=== PATIENT | female | born 1990 | race Caucasian/White ===

== ENCOUNTER → 2020-08-27 00:31 | Outpatient (CLI) | payer OTHER, SELFPAY ==
[2020-08-27 19:13] LABS: SARS-CoV-2 RNA PCR Negative
== END ==
PROVIDERS: PCP Family Medicine; Visit Provider Obstetrics & Gynecology
DX: Z01.812 Encounter for preprocedural laboratory examination (principal); Z20.822 Contact with and (suspected) exposure to COVID-19
CPT/HCPCS: C9803; U0003; U0005

== ENCOUNTER → 2020-12-05 01:58 | Outpatient (CLI) | payer OTHER, SELFPAY ==
[2020-12-05 18:16] LABS: SARS-CoV-2 RNA PCR Negative
== END ==
PROVIDERS: Visit Provider Obstetrics & Gynecology
DX: Z01.812 Encounter for preprocedural laboratory examination (principal); Z20.822 Contact with and (suspected) exposure to COVID-19
CPT/HCPCS: C9803; U0003; U0005

== ENCOUNTER 2020-12-07 00:41 | Day surgery (SDC) | payer OTHER, SELFPAY ==
[2020-08-23 08:35] VITALS: BMI 41.8
--- NOTE | 2020-10-25 07:17 | WPDHPUPDATE1 ---
History and Physical Update Update Date/Time: 10/25/20 07:17 History and Physical has been reviewed, including an updated exam of the patient. There are NO changes in the patient's condition. Risks, benefits, and alternatives have been discussed and questions answered. Patient agrees to proceed with procedure.
[2020-11-30 09:42] VITALS: BMI 46.4
[2020-12-07] VITALS (16 sets, daily range): BP systolic 105–141; BP diastolic 58–96; PULSE 94–120; RESP 12–22; TEMP 37.2–37.3; O2SAT 95–100
--- NOTE | 2020-12-07 08:12 | WPDANESEPPF ---
Anes - Initial Pre Proc Eval Procedure: Operation Date: 12/07/20 09:30 Proposed Procedures p Laparoscopic Left Ovarian Cystectomy - Sven Almodovar MD Date/Time: 12/07/20 08:12 Surgeon: Sven Almodovar MD Pre Op Diagnosis: left ovarian cyst Patient Data Age: 30 Gender: F Height: 1.63 m Weight: 122.72 kg Allergies Allergy/AdvReac Type Severity Reaction Status Date / Time Penicillins Allergy Unknown HIVES Unverified 11/30/20 09:34 Home Medications Medication Instructions Recorded Confirmed Type lamotrigine [Lamictal] 100 mg PO HS 08/23/20 11/30/20 History quetiapine [Seroquel] 100 mg PO HS 08/23/20 11/30/20 History Patient hx anesthesia problems: none Family hx anesthesia problems: none [facility] Past Medical History Medical History (Updated 12/07/20 @ 08:14 by Shaan Stubbs MD) Morbid obesity Ovarian cyst Surgical History Surgical History (Updated 12/07/20 @ 08:17 by Shaan Stubbs MD) Hx of tonsillectomy Social History Social History Smoking status: Never smoker Second hand tobacco smoke exposure: No Alcohol intake: never Substance use: never Substance use type: does not use Living arrangements: with family Additional living arrangements comments: RECENTLY MOVED OUT OF [facility] [address] AND NOW LIVING WITH HER MOM Spiritual care concerns: No Anes - Eval Final PreProcedure Day of Procedure 12/07/20 08:12 Patient weight: morbidly obese Heart: regular rate and rhythm Lungs: clear to auscultation Airway: Mallampati scale class II Neurological: alert and oriented Last oral intake: >/= 8 hours ASA classification: III Emergent: no Anesthetic plan: proceed Anesthesia type and monitoring: general ETT and standard monitoring Informed Consent: The patient's anesthetic plan and its attendant risks and benefits were discussed with the patient/family/POA. Questions were solicited and answers provided to the satisfaction of the patient/family/POA.
--- NOTE | 2020-12-07 08:20 | WPDHPUPDATE1 ---
History and Physical Update Update Date/Time: 12/07/20 08:20 History and Physical has been reviewed, including an updated exam of the patient. There are NO changes in the patient's condition. Risks, benefits, and alternatives have been discussed and questions answered. Patient agrees to proceed with procedure.
--- NOTE | 2020-12-07 08:20 | PM.IMHP ---
H&P: HPI History of Present Illness Date/Time: 12/07/20 08:20This patient is a 30-year-old female with a large ovarian cyst. She also has pelvic pain . We have agreed to perform laparoscopic ovarian cystectomy on the left ovary. The patient understands the procedure. She understands the risks associated with this that include injury. The injuries can result in hospitalization, more surgery, and severe illness. She understands this. She understands risk of hemorrhage and infection. Chief Complaint: Pelvic pain Review of Systems Constitutional: Constitutional: Reports no additional constitutional complaints, Denies fatigue, Denies headache(s), Denies lethargy and Denies weakness Eyes: Eyes: Reports no additional eye complaints, Denies blurry vision and Denies photophobia ENT: Reports as per HPI, Denies headache(s) and Denies neck pain Cardiovascular: Cardiovascular: Denies chest pain, Denies diaphoresis, Denies leg edema, Denies palpitations and Denies dyspnea Respiratory: Respiratory: Denies hemoptysis, Denies dyspnea and Denies wheezing Gastrointestinal: Gastrointestinal: Denies abdominal pain, Denies melena, Denies bloating, Denies hematochezia, Denies nausea and Denies vomiting Genitourinary: Genitourinary: Reports no additional female genitourinary complaints Musculoskeletal: Musculoskeletal: Denies joint swelling, Denies neck pain, Denies numbness and Denies stiffness Neurologic: Denies Abnormal speech present, Denies confusion, Denies headache(s), Denies numbness and Denies weakness Psychiatric: Psychiatric: Denies anxiety, Denies confusion, Denies depression, Denies homicidal ideation and Denies suicidal ideation Endocrine: Endocrine: Denies fatigue and Denies palpitations Allergic/Immunologic: Allergic/Immunologic: Denies wheezing [facility] Past Medical History Medical History (Updated 12/07/20 @ 08:22 by Sven Almodovar MD) Morbid obesity Ovarian cyst Surgical History Surgical History (Updated 12/07/20 @ 08:17 by Shaan Stubbs MD) Hx of tonsillectomy Social History Social History Smoking status: Never smoker Second hand tobacco smoke exposure: No Alcohol intake: never Substance use: never Substance use type: does not use Living arrangements: with family Additional living arrangements comments: RECENTLY MOVED OUT OF [facility] [address] AND NOW LIVING WITH HER MOM Spiritual care concerns: No Meds Home Medications and Allergies Home Medications Medication Instructions Recorded Confirmed Type lamotrigine [Lamictal] 100 mg PO HS 08/23/20 11/30/20 History quetiapine [Seroquel] 100 mg PO HS 08/23/20 11/30/20 History Allergies Allergy/AdvReac Type Severity Reaction Status Date / Time Penicillins Allergy Unknown HIVES Unverified 11/30/20 09:34 Exam Const: General: healthy appearing, comfortable and no acute distress; No confusion Orientation/consciousness: No confusion Eyes: Direct Ophthalmoscopy: No photophobia Resp: Auscultation: clear to auscultation bilaterally, no rales, no rhonchi and no wheezes Cardio: Rate: regular rate Heart sounds: no click, no murmurs and no rubs GI: Inspection: non-distended GI Palp: No abdominal tenderness Auscultation: normal bowel sounds Neuro: General: No confusion Speech: No Abnormal speech present Extrem: General: normal to inspection, no pedal edema and no calf tenderness Assessment and Plan Assessment and plan (1) Ovarian cyst: Code(s): N83.209 - Unspecified ovarian cyst, unspecified side Status: Acute Assessment and Plan: this patient is a 30-year-old female with a left ovarian cyst. It is painful. We have agreed to perform laparoscopic left ovarian cystectomy. She understands the risks, benefits, and alternatives. She has completed the informed consent
--- NOTE | 2020-12-07 10:22 | W.PM.PROC2 ---
Procedure Note - Detailed Date of Procedure 12/07/20 Pre-op Diagnosis left ovarian cyst Post-op Diagnosis same ( adnexal torsion) Procedure Performed left salpingo-oophorectomy with removal of large cystic mass. Surgeon Sven Almodovar MD Anesthesia general Indications 11 cm left ovarian cyst, pelvic pain Findings large left ovarian cyst, adnexal torsion on the left Description of Procedure The patient was taken to the operating room. She was prepped and draped in the dorsal lithotomy position after induction general anesthesia. A 5 mm incision was made with a scalpel on the abdominal skin in the left upper quadrant of the abdomen. A 5 mm trocar was inserted into the intra-abdominal cavity under direct visualization the scope. In the same fashion a 5 mm left lower quadrant trocar was inserted and a 5 mm infraumbilical trocar was inserted. after examination of the pelvis a large 15 mm trocar was inserted into the abdominal cavity in the left lower quadrant. The incision of the left lower quadrant site was expanded there before insertion of the trocar with the scalpel. The large left tube and ovary were cauterized transected the area the torsion. The cystic ovary was then placed in a large endobag was placed through the large trocar. The opening of the bag was brought up through the abdominal incision the left Lower quadrant. The skin incision was opened further. The fascial incision was extended with the scalpel. The opening of the bag could just pass through the fascia. The surface of the cyst was punctured and the fluid within the cyst was evacuated using suction. When it was reduced enough the entire bag and cyst with ovary and tube could be removed. The size of the cystic mass concerned me for borderline tumor. The trocar was inserted with towel clips on the skin around the trocar holding the pneumoperitoneum. irrigation fluid was infused into the pelvis and washings were obtained with a suction cannula syringe. The trocars removed in pneumoperitoneum was reduced. The fascia was closed 0 Vicryl running lock fashion. Subcuticular 3 0 Vicryl were placed. The skin was closed subcuticular 4 0 Monocryl. The skin incisions were covered Dermabond. She was taken recovery room in stable condition. Sponge lap and needle counts were correct x2. Estimated Blood Loss 25 Drains No Packing No Pathology yes Complications No immediate complications Condition stable Disposition same day
[2020-12-07] MEDS: LACTATED RINGERS 1,000 ML 30 ML IV CONT ×2 (10:30)
[2020-12-07] MEDS: ONDANSETRON INJ 4 MG/2 ML VIAL IV PUSH (10:57)
[2020-12-07] MEDS: fentaNYL CITRATE INJ (*CRX) 100 MCG/2 ML VIAL 25 MCG IV PUSH ×4 (11:25→12:15)
[2020-12-07] MEDS: diphenhydrAMINE HCl INJ 50 MG/ML VIAL 25 MG IV PUSH (11:55)
[2020-12-07] MEDS: SCOPOLAMINE 1.5 MG PATCH TRANSDERM (11:55)
== END 2020-12-07 14:15 | disposition home or self-care (01) ==
PROVIDERS: Visit Provider Obstetrics & Gynecology
PROC: (CPT 49320; principal; 2020-12-07 09:30)
DX: D27.1 Benign neoplasm of left ovary (principal); E66.01 Morbid (severe) obesity due to excess calories; Z68.37 Body mass index [BMI] 37.0-37.9, adult
CPT/HCPCS: 58661; 88108; 88305; A9270; J0330; J1100; J1200; J2250; J2405; J2704; J3010; J7030; J7120

== ENCOUNTER 2021-12-28 11:28 | Outpatient (CLI) | payer OTHER, SELFPAY ==
[2021-12-28 12:23] LABS: Influenza Control Valid (Valid)
[2021-12-28 12:34] LABS: SARS-CoV-2 Ag Negative (Negative)
== END 2021-12-28 11:29 | disposition home or self-care (01) ==
LOC: CHSLAB 11:30
PROVIDERS: PCP Family Medicine; Visit Provider Family Medicine
DX: J06.9 Acute upper respiratory infection, unspecified (principal); Z20.822 Contact with and (suspected) exposure to COVID-19
CPT/HCPCS: 87081; 87426; 87804; 87880; C9803

== ENCOUNTER 2022-10-02 19:43 | Emergency (ER) | payer OTHER, SELFPAY ==
--- NOTE | ~2022-10-02 | XR_ITS ---
EXAM: XR hand LT min 3V DATE: 10/02/2022 20:18 HISTORY: MEDIAL LEFT HAND PAIN S/P FALL. . COMPARISON: None available. FINDINGS: Normal mineralization. No fracture or dislocation. No lytic or blastic lesion. Joint space s are maintained. No erosion or periosteal change. Soft tissues within normal limits. IMPRESSION: No acute osseous finding in the left hand. Reviewed, dictated and finalized at location K.
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
[2022-10-02 19:50] VITALS: BP 120/79; PULSE 65; RESP 20; TEMP 36.4; O2SAT 97
== END 2022-10-02 20:35 | disposition home or self-care (01) ==
LOC: CHSED 20:20
PROVIDERS: Emergency Provider Emergency Medicine; PCP Family Medicine
DX: S60.222A Contusion of left hand, initial encounter (principal); W50.0XXA Accidental hit or strike by another person, initial encounter; Y92.009 Unspecified place in unspecified non-institutional (private) residence as the place of occurrence of the external cause
CPT/HCPCS: 73130; 99283

== ENCOUNTER 2023-03-07 20:15 | Emergency (ER) | payer OTHER, SELFPAY ==
--- NOTE | ~2023-03-07 | CT_ITS ---
EXAMINATION: CT abdomen pelvis w con INDICATION: Abdominal pain TECHNIQUE: Computed tomographic images of the abdomen and pelvis were obtained after the administrati on of 100 cc of Omnipaque 350 intravenous contrast. The dose-length product (DLP) was 809.21 mGy-cm. Automated exposure control and iterative reconstruction technique were employed. COMPARISON: None available FINDINGS: Minimal dependent atelectasis is present in the lung bases. The heart size is normal. The l iver, spleen, pancreas, gallbladder, and adrenal glands are normal. The left kidney is unremarkable. There is a 6 mm cyst of the right kidney. No pathologically enlarged abdominal or pelvic lymph nodes are identified. There fecal impaction of the sigmoid colon and rectum. There is wall thickening of th e rectum with perirectal fat stranding. There are no dilated loops of bowel. No free intraperitoneal gas is identified. There is a left lateral lower abdominal wall hernia containing fat, possibly site of prior colostomy. IMPRESSION: 1. Fecal impaction of the sigmoid colon and rectum with wall thickening of the rectum and perirectal fat stranding, consistent with stercoral colitis. Reviewed, dictated and finalized at location F.
[2023-03-07 20:20] VITALS: BP 111/76; RESP 20; TEMP 36.6; O2SAT 95
--- NOTE | 2023-03-07 20:36 | ECG_ITS ---
Measurements Intervals [place] Rate: 87 P: 38 FL: 123 QRS: 12 QRSD: 86 T: 19 QT: 350 QTc: 423 Interpretive Statements SINUS RHYTHM BORDERLINE T WAVE ABNORMALITY- ANTERIOR LEADS BORDERLINE ECG NO PREVIOUS ECG AVAILABLE FOR COMPARISON Electronically Signed On 03-08-2023 6:39:22 CDT by Vivek Powell D.O.
[2023-03-07] MEDS: SODIUM CHLORIDE 0.9% IV 1,000 ML 999 ML IV CONT (20:50)
[2023-03-07 20:58] LABS: Basophils Absolute Auto 0.06 K/mm3 (0.00-0.10); Basophils Percent Auto 0.6 % (0.0-1.0); Eosinophils Absolute Auto 0.09 K/mm3 (0.02-0.50); Eosinophils Percent Auto 0.8 % (1.0-6.0); Hematocrit 35.7 % (35.0-49.0); Hemoglobin 12.1 g/dL (12.0-15.0); Immature Granulocyte Absolute 0.07 K/mm3 (0.00-0.00); Immature Granulocyte Percent A 0.6 % (0.0-0.0); Lymphocytes Absolute Auto 2.76 K/mm3 (1.10-4.50); Lymphocytes Percent Auto 25.3 % (18.0-42.0); Mean Corpuscular HGB Conc 33.9 g/dL (32.0-36.0); Mean Corpuscular Volume 85.6 fL (78.0-102.0); Mean Platelet Volume 9.4 fl (9.2-11.8); Monocytes Absolute Auto 0.82 K/mm3 (0.10-0.90); Monocytes Percent Auto 7.5 % (2.0-11.0); Neutrophils Absolute Auto 7.1 K/mm3 (1.7-7.2); Neutrophils Percent Auto 65.2 % (50.0-70.0); Platelet Count Result 417 K/mm3 (150-420); Red Blood Count 4.17 M/mm3 (4.20-5.40); Red Cell Distribution Width 12.5 % (11.6-14.4); White Blood Count 10.9 K/mm3 (4.8-10.8)
[2023-03-07 21:00] VITALS: BP 101/65; PULSE 85; RESP 18; O2SAT 97
[2023-03-07] MEDS: DIPHENOXYLATE/ATROPINE (*CRX) 2.5 MG TABLET 2 TABLET PO (21:03)
[2023-03-07 21:08] LABS: SPREG INTERNAL CONTROL Positive; Serum Qual hCG Negative
[2023-03-07 21:14] LABS: Alanine Aminotransferase 40 U/L (14-59); Albumin Level 3.2 g/dL (3.4-5.0); Alkaline Phosphatase 62 U/L (46-116); Anion Gap 12 mmol/L (8-16); Aspartate Amino Transferase 18 U/L (15-37); Bilirubin,Total 0.3 mg/dL (0.00-1.00); Blood Urea Nitrogen 7 mg/dL (7-18); Calcium 9.4 mg/dL (8.5-10.1); Carbon Dioxide 22 mmol/L (21-32); Chloride 104 mmol/L (98-108); Estimated CRCL calculation 108 ml/min; Estimated Glomerular Filt Rate > 60; Glucose 104 mg/dL (70-99); Lipase 28 U/L (16-77); Osmolality Calculated 284 mOsm/kg (285-295); Potassium 3.9 mmol/L (3.5-5.1); Sodium 138 mmol/L (136-145); Total Protein 7.3 g/dL (6.4-8.2)
--- NOTE | 2023-03-07 21:15 | PC.NURSE ---
Pt up to [facility] c assist several times and having bouts of diarrhea. Pt unable to clean herself properly and assisted c cleaning using wet wipes and cleansing foam. Pt back to bed per self. VSS.
[2023-03-07 21:19] LABS: Lactic Acid Reflex 0.7 mmol/L (0.4-2.0)
[2023-03-07 21:21] LABS: Appearance Urine Clear (Clear); Bilirubin Urine Negative (Negative); Blood Urine Trace-Intact (Negative); Color Urine Light Yellow (Yellow); Glucose Urine UA Negative (Negative); Ketones Urine Negative (Negative); Leukocyte Esterase Ur Trace LEU/UL (Negative); Nitrate Urine Negative (Negative); Protein Urine Negative (Negative); Specific Grav Ur 1.015 (1.010-1.020); pH Urine 6.5 (5.0-8.0)
[2023-03-07 21:28] LABS: Add Urine Microscopic? YES; Bacteria Urine Trace /hpf; RBC Urine 0-2 /hpf (0-2); Squamous Epithelial Cell Urine Occasional /hpf (Few); WBC Urine 0-3 /hpf (0-3)
--- NOTE | 2023-03-07 22:11 | ED.ABDPAIN ---
HPI - Abdominal Pain General Chief Complaint: Abdominal Pain Stated Complaint: abd pain, dizziness Time Seen by Provider: 03/07/23 20:21 Source: patient and EMS Mode of arrival: EMS Limitations: no limitations History of Present Illness HPI narrative: this is a 32 year female from [address] history of bipolar disorder and depression presents with watery diarrhea with no fever chills, with no nausea or vomiting abdominal pain is crampy with no chest pain no shortness of breath. MD elicited complaint: abdominal pain Pertinent past history: other ( diarrhea) Onset (ago): day(s) Pain Consistency: intermittent Related Data Home Medications Medication Instructions Recorded Confirmed lamotrigine 100 mg tablet 100 mg PO HS 08/23/20 03/07/23 (Lamictal) buspirone 10 mg tablet 10 mg PO TID 03/07/23 03/07/23 norgestimate-ethinyl estradiol 1 tablet PO DAILY 03/07/23 03/07/23 0.18 mg/0.215mg/0.25mg-35 mcg()tablet ofloxacin 0.3 % eye drops 1 drp LEFT EYE QID 03/07/23 03/07/23 quetiapine 200 mg tablet 200 mg PO HS 03/07/23 03/07/23 Allergies Allergy/AdvReac Type Severity Reaction Status Date / Time Penicillins Allergy Unknown HIVES Verified 03/07/23 21:15 Review of Systems Review of Systems: All systems reviewed & are unremarkable except as noted in HPI and below PMFSH Past Medical History Medical History Morbid obesity Ovarian cyst Surgical History Surgical History Hx of tonsillectomy Social History Social History Smoking status: Never smoker Second hand tobacco smoke exposure: No Alcohol intake: never Substance use: never Substance use type: does not use Living arrangements: with family Additional living arrangements comments: RECENTLY MOVED OUT OF [facility] [address] AND NOW LIVING WITH HER MOM Spiritual care concerns: No Exam Const: General: no acute distress Nutritional Appearance: obese Limitations: no limitations HENMT: Head: normal to inspection Eyes: Conjunctivae: conjunctivae normal EOM: EOMs intact bilaterally Chest: Chest palpation & inspection: normal inspection of the chest Resp: Effort & Inspection: normal respiratory effort Auscultation: clear to auscultation bilaterally Cardio: Rate: regular rate Rhythm: regular rhythm GI: GI Palp: Yes Soft to palpation and Yes Tenderness to palpation present (GI) Auscultation: normal bowel sounds : General: Yes bladder normal to palpation Urinary Catheter: Urinary Catheter: patent and draining Back/Spine/Pelvis: Back: no CVA tenderness Skin: General skin exam: normal color Rashes: no rashes Neuro: General: patient oriented x3 Cranial nerves: Yes Nystagmus not present Extrem: General: normal to inspection and no clubbing, cyanosis or edema Psych: Affect: Anxious affect present Course Course Emergency Course: Labs reviewed with patient and white count was 10.9, does have positive leukocytes will treat for urinary tract infection, CT scan reviewed with patient. Patient also received IV fluids and Lomotil for her diarrhea. Vital Signs Vital signs: Vital Signs Temperature 36.6 C 03/07/23 20:20 Respiratory Rate 20 03/07/23 20:20 Blood Pressure 111/76 03/07/23 20:20 Pulse Oximetry 95 03/07/23 20:20 Oxygen Delivery Room Air 03/07/23 20:20 Temperature 36.6 C 03/07/23 20:20 Pulse Rate 85 03/07/23 21:00 Respiratory Rate 18 03/07/23 21:00 Blood Pressure 101/65 03/07/23 21:00 Pulse Oximetry 97 03/07/23 21:00 Oxygen Delivery Room Air 03/07/23 21:00 MDM - Abdominal Pain Lab Data 03/07/23 20:55 03/07/23 20:55 Labs: Lab Results 03/07/23 03/07/23 Range/Units 20:55 21:19 WBC 10.9 H (4.8-10.8) K/mm3 RBC 4.17 L (4.20-5.40) M/mm3 Hgb 12.1 (12
[2023-03-07] MEDS: NITROFURANTOIN MONOHYD MACROCR 100 MG CAP PO (22:19)
--- NOTE | 2023-03-07 23:19 | PC.NURSE ---
SSE complete, pt had moderate amt soft formed stool output and states she has no cramping at this time. Pt to d/c back to [facility]. 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
[2023-03-07 23:20] VITALS: BP 122/74; PULSE 84; RESP 18; TEMP 36.8; O2SAT 95
--- NOTE | 2023-03-07 23:25 | PC.NURSE ---
Upon d/c pt ambulated steadily to BR and had very large amt formed soft stool and now c/o no pain and feeling better. Instructions given to replace fluids orally and get Rx for mag citrated in AM and take only if needed. Pt stated understanding.
== END 2023-03-07 23:30 | disposition home or self-care (01) ==
PROVIDERS: Emergency Provider Emergency Medicine; PCP Family Medicine
DX: K56.41 Fecal impaction (principal); Z79.899 Other long term (current) drug therapy
CPT/HCPCS: 36415; 74177; 80053; 81001; 83605; 83690; 84703; 85025; 93005; 96360; 99284; A9270; J7030; Q9967

== ENCOUNTER 2024-08-27 13:58 | Outpatient (CLI) | payer OTHER, SELFPAY ==
--- NOTE | ~2024-08-27 | XR_ITS ---
XR shoulder RT min 2V Ordering provider: Corwin Arnold MD History: . pain in right shoulder, no trauma . Comparison: None. FINDINGS: BONES: No acute fracture or dislocation. JOINT SPACES: The acromioclavicular joint is normal. The glenohumeral joint is normal. SOFT TISSUES: Normal. IMPRESSION: No acute osseous abnormality right shoulder. Reviewed, dictated and finalized at location A.
--- OUTSIDE RECORDS SUMMARY | 2024-08-27 14:25 | XMS_ITS | Data Portability ---
[facility] Organization [facility] Address [address] [place] [address] Assessment No assessment recorded. Plan of Treatment Reminders Order Date Submit Date Provider Last Modified By Organization Details Last Modified Time Details Appointments None recorded. Lab test, urine 2015 016 [email or web address] In-Office Order, Internal Use Only DO Not Attach Compendium DO Not Attach Compendium, Do Not Delete/merge, [id number] 6 13:28:23 test, urine 2014 015 [email or web address] In-Office Order, Internal Use Only DO Not Attach Compendium DO Not Attach Compendium, Do Not Delete/merge, [id number] 5 11:55:40 pap, IG + reflex HR HPV 2014 015 [facility], [address] [place] [address], [address], [place], [address], 5 14:43:15 HSV (1+2) DNA, qual, PCR, unspecifie d specimen 2014 015 [facility], [address] [place] [address], [address], [place], [address], 5 06:11:47 bacterial vaginosis + vaginitis panel, vaginal 2014 015 [facility], [address] [place] [address], [address], [place], [address], 5 06:11:46 test, urine 2014 015 [email or web address] In-Office Order, Internal Use Only DO Not Attach Compendium DO Not Attach Compendium, Do Not Delete/merge, [id number] 5 10:59:48 test, urine 2013 014 [email or web address] In-Office Order, Internal Use Only DO Not Attach Compendium DO Not Attach Compendium, Do Not Delete/merge, [id number] 4 15:40:59 urinalysis , dipstick 2013 014 [email or web address] In-Office Order, Internal Use Only DO Not Attach Compendium DO Not Attach Compendium, Do Not Delete/merge, [id number] 4 15:40:59 bacterial vaginosis + vaginitis panel, vaginal 2013 014 DIANA ROLAND, [address], [address], [place], [address], 4 14:34:10 HSV (1+2) DNA, qual, PCR, unspecifie d specimen 2013 014 DIANA ROLAND, [address], [address], [place], [address], 4 14:34:11 pap, IG + reflex HR HPV 2013 014 DIANA ROLAND, [address], [address], [place], [address], 4 20:09:22 HIV-1 Ab screen, serum 2013 014 IDANA ROLAND, [address], [address], [place], [address], 4 06:21:42 hepatitis (A+B+C) panel, serum 2013 014 DIANA ROLAND, [address], [address], [place], [address], 4 06:21:41 vdrl/RPR, serum 2013 014 [email or web address] [facility], [address] [facility], [address], [place], [address], 5 17:03:29 Referral None recorded. Procedures None recorded. Surgeries None recorded. Imaging None recorded. Medication Orders Depo-Prove ra 150 mg/mL intramuscu lar syringe 2015 016 [email or web address] Not available 6 13:28:23 Depo-Prove ra 150 mg/mL intramuscu lar syringe 2014 015 [email or web address] Not available 5 11:55:40 Depo-Prove ra 150 mg/mL intramuscu lar syringe 2014 015 [email or web address] Not available 5 10:59:48 Depo-Prove ra 150 mg/mL intramuscu lar syringe 2013 014 [email or web address] [facility] #[id number], [address] [place] [address], [id number], 4 15:40:59 Depo-Prove ra 150 mg/mL intramuscu lar syringe 2013 014 [id number], [address] [place] [address], [id number], 4 15:41:16 Patient TargetsNo targets recorded. Patient InstructionsNo instructions recorded. Reason for Referral None Reported. Results Created Date Observation Date Name Description Value Unit Range Abnormal Flag Note LastModifiedBy Organization Detail LastModifiedTime 07/01/19 16 07/01/2015 pregn meng test, urine HCG negati ve Not Available In-Office Order Internal Use Only DO Not Attach Compendium DO Not Attach Compendium, Do Not Delete/merge, [id number] 07/01/2015 15:13:03 04/01/20 15 04/01/2015 pregn meng test, urine HCG negati ve Not Available In-Office Order Internal Use Only DO Not Attach Compendium DO Not Attach Compendium, Do Not Delete/merge, [id number] 04/01/2015 16:17:26 08/19/19 15 08/18/2014 pregn meng test, urine HCG negati ve Not Available In-Office Order Internal Use Only DO Not Attach Compendium DO Not Attach Compendium, Do Not Delete/merge, [id number] 08/18/2014 11:37:59 05/20/20 14 05/20/2014 urina lysis , dipst ick Leukocytes Negati ve Not Available In-Office Order Internal Use Only DO Not Attach Compendium DO Not Attach Compendium, Do Not Delete/merge, [id number] 05/20/2014 15:16:55 05/20/20 14 05/20/2014 urina lysis , dipst ick Nitrite negati ve Not Available In-Office Order Internal Use Only DO Not Attach Compendium DO Not Attach Compendium, Do Not Delete/merge, [id number] 05/20/2014 15:16:55 05/20/20 14 05/20/2014 urina lysis , dipst ick Urobilinogen 1 Not Available In-Of fice Order Internal Use Only DO Not Attach Compendium DO Not Attach Compendium, Do Not Delete/merge, [id number] 05/20/2014 15:16:55 05/20/20 14 05/20/2014 urina lysis , dipst ick Protein Negati ve Not Available In-Office Order Internal Use Only DO Not Attach Compendium DO Not Attach Compendium, Do Not Delete/merge, [id number] 05/20/2014 15:16:55 05/20/20 14 05/20/2014 urina lysis , dipst ick pH 6.0 Not Available In-Office Order Internal Use Only DO Not Attach Compendium DO Not Attach Compendium, Do Not Delete/merge, [id number] 05/20/2014 15:16:55 05/20/20 14 05/20/2014 urina lysis , dipst ick Blood Negati ve Not Available In-Office Order Internal Use Only DO Not Attach Compendium DO Not Attach Compendium, Do Not Delete/merge, [id number] 05/20/2014 15:16:55 05/20/20 14 05/20/2014 urina lysis , dipst ick Specific [place] 1.025 Not Available In-Off ice Order Internal Use Only DO Not Attach Compendium DO Not Attach Compendium, Do Not Delete/merge, [id number] 05/20/2014 15:16:55 05/20/20 14 05/20/2014 urina lysis , dipst ick Ketone Negati ve Not Available In-Office Order Internal Use Only DO Not Attach Compendium DO Not Attach Compendium, Do Not Delete/merge, [id number] 05/20/2014 15:16:55 05/20/20 14 05/20/2014 urina lysis , dipst ick Bilirubin Negati ve Not Available In-Office Order Internal Use Only DO Not Attach Compendium DO Not Attach Compendium, Do Not Delete/merge, [id number] 05/20/2014 15:16:55 05/20/20 14 05/20/2014 urina lysis , dipst ick Glucose Negati ve Not Available In-Office Order Internal Use Only DO Not Attach Compendium DO Not Attach Compendium, Do Not Delete/merge, [id number] 05/20/2014 15:16:55 05/20/20 14 05/20/2014 urina lysis , dipst ick Appearance Clear Not Available In-Offi ce Order Internal Use Only DO Not Attach Compendium DO Not Attach Compendium, Do Not Delete/merge, [id number] 05/20/2014 15:16:55 05/20/20 14 05/20/2014 urina lysis , dipst ick Color Yellow Not Available In-Office Order Internal Use Only DO Not Attach Compendium DO Not Attach Compendium, Do Not Delete/merge, [id number] 05/20/2014 15:16:55 05/20/20 14 05/20/2014 pregn meng test, urine HCG negati ve Not Available In-Office Order Internal Use Only DO Not Attach Compendium DO Not Attach Compendium, Do Not Delete/merge, [id number] 05/20/2014 15:16:55 05/20/20 14 05/21/2014 hepat itis (A+B+ C) panel , serum hep A Ab, total POSITI VE negati ve abnormal Not Available [facility] ([facility]) [address] [place], [address], 05/22/2014 06:21:41 05/20/20 14 05/21/2014 hepat itis (A+B+ C) panel , serum hep B core Ab, tot NEGATI VE negati ve Not Available [facility] ([facility]) [address] [facility], [place], [address], 05/22/2014 06:21:41 05/20/20 14 05/21/2014 hepat itis (A+B+ C) panel , serum hep B surface Ab, qual NON REACTI VE NON REACT JEFFERY: INCON SISTE NT WITH IMMUN ITY, LESS THAN 10 MIU/M L REACT JEFFERY: CONSI STENT WITH IMMUN ITY, GREAT ER THAN 9.9 MIU/M L Not Available [facility] ([facility]) [address] [facility], [place], [address], 05/22/2014 06:21:41 05/20/20 14 05/22/2014 hepat itis (A+B+ C) panel , serum hep A Ab, IgM NEGATI VE negati ve Not Available [facility] ([facility]) [address] [place], [address], 05/22/2014 06:21:41 05/20/20 14 05/21/2014 HIV-1 Ab scree n, serum HIV 1/O/2 abs-index value <1.00 <1.00 INDEX VALUE : SPECI MEN REACT IVITY RELAT JEFFERY TO THE NEGAT JEFFERY CUTOF F. Not Available [facility] ([facility]) [address] [place], [address], 05/22/2014 06:21:42 05/20/20 14 05/21/2014 HIV-1 Ab scree n, serum HIV 1/O/2 abs, qual NON REACTI VE non reacti ve Not Available [facility] ([facility]) [address] [place], [address], 05/22/2014 06:21:42 05/20/20 14 05/21/2014 RPR (rapi d plasm a reagi n), serum RPR NON REACTI VE non reacti ve Not Available [facility] ([facility]) [address] [place], [address], 05/22/2014 06:21:42 05/20/20 14 05/24/2014 pap, IG + refle x HR HPV diagnosis: ANAYELI Roth NEGAT JEFFERY FOR INTRA EPITH ELIAL LESIO N AND MEHDI WILLIAMSON . Not Available [facility] ([facility]) [address] [place], [address], 05/24/2014 20:09:22 05/20/20 14 05/24/2014 pap, IG + refle x HR HPV specimen adequacy: ANAYELI Roth SATIS FACTO RY FOR EVALU ATION . ENDOC ERVIC AL AND/O R SQUAM OUS METAP LASTI C CELLS (ENDO CERVI GENA COMPO NENT) ARE PRESE NT. Not Available [facility] ([facility]) [address] [place], [address], 05/24/2014 20:09:22 05/20/20 14 05/24/2014 pap, IG + refle x HR HPV clinician provided ICD9: ANAYELI Roth V25.0 2 ; GENER AL COUNS ELING FOR INITI ATION OF OTHER CONTR ACEPT JEFFERY MEASU RES Not Available [facility] ([facility]) [address] [place], [address], 05/24/2014 20:09:22 05/20/20 14 05/24/2014 pap, IG + refle x HR HPV performed by: ANIRUDH SANTOYO (ASCP ) Not Available [facility] ([facility]) [address] [place], [address], 05/24/2014 20:09:22 05/20/20 14 05/24/2014 pap, IG + refle x HR HPV . . Not Available [facility] ([facility]) [address] [place], [address], 05/24/2014 20:09:22 05/20/20 14 05/24/2014 pap, IG + refle x HR HPV note: COMMEN T THE PAP SMEAR IS A SCREE JEN TEST DESIG HARSHIL TO AID IN THE DETEC TION OF MYCHAL LIGNA NT AND MALIG NANT CONDI TIONS OF THE UTERI NE CERVI X. IT IS NOT A DIAGN OSTIC PROCE DURE AND SHOUL D NOT BE USED THE SOLE MEANS OF DETEC TING CERVI GENA CANCE R. BOTH FALSE -POSI TIVE AND FALSE -NEGA TIVE REPOR TS DO OCCUR . . Not Available [facility] ([facility]) [address] [place], [address], 05/24/2014 20:09:22 05/20/20 14 05/24/2014 pap, IG + refle x HR HPV test methodology: COMMEN T THIS LIQUI D BASED THINP REP(R ) PAP TEST WAS SCREE HARSHIL WITH THE USE OF AN IMAGE GUIDE D SYSTE M. Not Available [facility] ([facility]) [address] [place], [address], 05/24/2014 20:09:22 05/20/20 14 05/24/2014 pap, IG + refle x HR HPV . COMMEN T THE HPV DNA REFLE X CRITE RASHEED WERE NOT MET WITH THIS SPECI MEN RESUL T THERE FORE, NO HPV TESTI NG WAS PERFO RMED. . Not Available [facility] ([facility]) [address] [place], [address], 05/24/2014 20:09:22 05/20/20 14 05/25/2014 bacte rial vagin osis + vagin itis panel , vagin al atopobium vaginae LOW - 0 score Not Available [facility] ([facility]) [address] [place], [address], 05/25/2014 14:34:09 05/20/20 14 05/25/2014 bacte rial vagin osis + vagin itis panel , vagin al bvab 2 LOW - 0 score Not Available [facility] ([facility]) [address] [place], [address], 05/25/2014 14:34:09 05/20/20 14 05/25/2014 bacte rial vagin osis + vagin itis panel , vagin al megasphaera 1 LOW - 0 score CALCU LATE TOTAL SCORE BY WANDER Dia THE 3 INDIV IDUAL BACTE RIAL VAGIN OSIS (BV) MARKE R SCORE S TOGET HER. TOTAL SCORE IS INTER PRETE D FOLLO WS: . TOTAL SCORE 0-1: INDIC ATES THE ABSEN CE OF BV. TOTAL SCORE 2: INDET ERMIN ATE FOR BV. ADDIT IONAL CLINI GENA DATA SHOUL D BE EVALU ATED TO ESTAB FREDDY A DIAGN OSIS. TOTAL SCORE 3-6: INDIC ATES THE PRESE NCE OF BV. . THIS TEST WAS DEVEL OPED AND ITS PERFO RMANC E KEIRY CTERI STICS DETER MINED BY [facility] RP. IT HAS NOT BEEN CLEAR ED OR APPRO HEATHER BY THE FOOD AND DRUG ADMIN ISTRA TION. THE FDA HAS DETER MINED THAT SUCH CLEAR ANCE OR APPRO RIKKI IS NOT NECES CYNDI. Not Available [facility] ([facility]) [address] [facility], [place], [address], 05/25/2014 14:34:09 05/20/20 14 05/25/2014 bacte rial vagin osis + vagin itis panel , vagin al kesha albicans, RAKAN NEGATI VE negati ve Not Available [facility] ([facility]) [address] [facility], [place], [address], 05/25/2014 14:34:09 05/20/20 14 05/25/2014 bacte rial vagin osis + vagin itis panel , vagin al kesha glabrata, RAKAN NEGATI VE negati ve THIS TEST WAS DEVEL OPED AND ITS PERFO RMANC E KEIRY CTERI STICS DETER MINED BY [facility] . IT HAS NOT BEEN CLEAR ED OR APPRO HEATHER BY THE FOOD AND DRUG ADMIN ISTRA TION. THE FDA HAS DETER MINED THAT SUCH CLEAR ANCE OR APPRO RIKKI IS NOT ARIEL HANNA. Not Available [facility] ([facility]) [address] [facility], [place], [address], 05/25/2014 14:34:09 05/20/20 14 05/25/2014 bacte rial vagin osis + vagin itis panel , vagin al trich vag by RAKAN INTER UNABL E TO ASSAY - INTER FERIN G SUBST ANCE PRESE NT. Not Available [facility] ([facility]) [address] [place], [address], 05/25/2014 14:34:09 05/20/20 14 05/25/2014 bacte rial vagin osis + vagin itis panel , vagin al chlamydia trachomatis, RAKAN INTER UNABL E TO ASSAY - INTER FERIN G SUBST ANCE PRESE NT. Not Available [facility] ([facility]) [address] [place], [address], 05/25/2014 14:34:09 05/20/20 14 05/25/2014 bacte rial vagin osis + vagin itis panel , vagin al neisseria gonorrhoeae, RAKAN INTER UNABL E TO ASSAY - INTER FERIN G SUBST ANCE PRESE NT. Not Available [facility] ([facility]) [address] [place], [address], 05/25/2014 14:34:09 05/20/20 14 05/24/2014 HSV (1+2) DNA, qual, PCR, unspe cifie d speci men hsv 1 RAKAN NEGATI VE negati ve Not Available [facility] ([facility]) [address] [place], [address], 05/25/2014 14:34:11 05/20/20 14 05/24/2014 HSV (1+2) DNA, qual, PCR, unspe cifie d speci men hsv 2 RAKAN NEGATI VE negati ve Not Available [facility] ([facility]) [address] [facility], [place], [address], 05/25/2014 14:34:11 05/20/20 14 05/22/2014 cultu re, vagin al/re ctal, strep tococ cus group B strep gp B RAKAN NEGATI VE negati ve PENIC ILLIN G, AMPIC ILLIN , OR CEFAZ ANDREW ARE INDIC ATED FOR INTRA PARTU M PROPH YLAXI S OF PERIN ATAL GROUP B STREP (GBS) COLON IZATI ON. REFLE X SUSCE PTIBI LITY TESTI NG SHOUL D BE PERFO RMED PRIOR TO USE OF CLIND AMYCI N ONLY ON GBS ISOLA QASIM FROM PENIC ILLIN -JUSTIN RGIC WOMEN WHO ARE CONSI DERED A HIGH RISK FOR ANAPH YLAXI S. TREAT MENT WITH VANCO MYCIN WITHO UT ADDIT IONAL TESTI NG IS WARRA NTED IF RESIS TANCE TO CLIND AMYCI N IS NOTED . (CDC GUIDE LINES , MMWR, 2009) Not Available [facility] ([facility]) [address] [facility], [place], [address], 05/25/2014 14:34:12 04/01/20 15 04/04/2015 bacte rial vagin osis + vagin itis panel , vagin al trich vag by RAKAN NEGATI VE negati ve Not Available [facility] ([facility]) [address] [facility], [place], [address], 04/06/2015 06:11:46 04/01/20 15 04/04/2015 bacte rial vagin osis + vagin itis panel , vagin al chlamydia trachomatis, RAKAN NEGATI VE negati ve Not Available [facility] ([facility]) [address] [place], [address], 04/06/2015 06:11:46 04/01/20 15 04/04/2015 bacte rial vagin osis + vagin itis panel , vagin al neisseria gonorrhoeae, RAKAN NEGATI VE negati ve Not Available [facility] ([facility]) [address] [place], [address], 04/06/2015 06:11:46 04/01/20 15 04/06/2015 bacte rial vagin osis + vagin itis panel , vagin al atopobium vaginae LOW - 0 score Not Available [facility] ([facility]) [address] [facility], [place], [address], 04/06/2015 06:11:46 04/01/20 15 04/06/2015 bacte rial vagin osis + vagin itis panel , vagin al bvab 2 LOW - 0 score Not Available [facility] ([facility]) [address] [facility], [place], [address], 04/06/2015 06:11:46 04/01/20 15 04/06/2015 bacte rial vagin osis + vagin itis panel , vagin al megasphaera 1 LOW - 0 score CALCU LATE TOTAL SCORE BY WANDER Dia THE 3 INDIV IDUAL BACTE RIAL VAGIN OSIS (BV) MARKE R SCORE S TOGET HER. TOTAL SCORE IS INTER PRETE D FOLLO WS: TOTAL SCORE 0-1: INDIC ATES THE ABSEN CE OF BV. TOTAL SCORE 2: INDET ERMIN ATE FOR BV. ADDIT IONAL CLINI GENA DATA SHOUL D BE EVALU ATED TO ESTAB FREDDY A DIAGN OSIS. TOTAL SCORE 3-6: INDIC ATES THE PRESE NCE OF BV. THIS TEST WAS DEVEL OPED AND ITS PERFO RMANC E KEIRY CTERI STICS DETER MINED BY [facility]. IT HAS NOT BEEN CLEAR ED OR APPRO HEATHER BY THE FOOD AND DRUG ADMIN ISTRA TION. THE FDA HAS DETER MINED THAT SUCH CLEAR ANCE OR APPRO RIKKI IS NOT NECES CYNDI. Not Available [facility] ([facility]) [address] [facility], [place], [address], 04/06/2015 06:11:46 04/01/2004/06/2015 bacte rial vagin osis + vagin itis panel , vagin al kesha albicans, RAKAN NEGATI VE negati ve Not Available [facility] ([facility]) [address] [place], [address], 04/06/2015 06:11:46 04/01/20 15 04/06/2015 bacte rial vagin osis + vagin itis panel , vagin al kesha glabrata, RAKAN NEGATI VE negati ve THIS TEST WAS DEVEL JOHNED AND ITS PERFO RMANC E KEIRY CTERI STICS DETER MINED BY [facility]. IT HAS NOT BEEN CLEAR ED OR APPRO HEATHER BY THE FOOD AND DRUG ADMIN ISTRA TION. THE FDA HAS DETER MINED THAT SUCH CLEAR ANCE OR APPRO RIKKI IS NOT NECES CYNDI. Not Available [facility] ([facility]) [address] [place], [address], 04/06/2015 06:11:46 04/01/20 15 04/04/2015 HSV (1+2) DNA, qual, PCR, unspe cifie d speci men hsv 1 RAKAN NEGATI VE negati ve Not Available [facility] ([facility]) [address] [place], [address], 04/06/2015 06:11:47 04/01/20 15 04/04/2015 HSV (1+2) DNA, qual, PCR, unspe cifie d speci men hsv 2 RAKAN NEGATI VE negati ve Not Available [facility] ([facility]) [address] [place], [address], 04/06/2015 06:11:47 04/01/20 15 04/05/2015 pap, IG + HPV, cervi gena HPV aptima NEGATI VE negati ve THIS TEST DETEC TS FOURT EEN HIGH- RISK HPV TYPES (16/1 8/31/ 33/35 /39/4 5/ 51/52 /56/5 8/59/ 66/68 ) WITHO UT DIFFE RENTI ATION . Not Available [facility] ([facility]) [address] [place], [address], 04/06/2015 14:43:14 04/01/20 15 04/06/2015 pap, IG + HPV, cervi gena diagnosis: ANAYELI Roth UNSAT ISFAC TORY FOR EVALU ATION . Not Available [facility] ([facility]) [address] [facility], [place], [address], 04/06/2015 14:43:14 04/01/20 15 04/06/2015 pap, IG + HPV, cervi gena recommendati on: ANAYELI GARCIA ST FOLLO W UP CLINI LALA APPRO PRIAT E. Not Available [facility] ([facility]) [address] [facility], [place], [address], 04/06/2015 14:43:14 04/01/20 15 04/06/2015 pap, IG + HPV, cervi gena specimen adequacy: ANAYELI Roth SPECI MEN PROCE SSED AND EXAMI HARSHIL BUT UNSAT ISFAC TORY FOR EVALU ATION BECAU SE OF [facility] NT CELLU LARIT Y. Not Available [facility] ([facility]) [address] [place], [address], 04/06/2015 14:43:14 04/01/20 15 04/06/2015 pap, IG + HPV, cervi gena performed by: ANAYELI ZAZUETA , CYTOT ECHNO LOGIS T (ASCP ) Not Available [facility] ([facility]) [address] [facility], [place], [address], 04/06/2015 14:43:14 04/01/20 15 04/06/2015 pap, IG + HPV, cervi gena QC reviewed by: HERMILA MORGANOR Y CYTOT ECHNO LOGIS T (ASCP ) Not Available [facility] ([facility]) [address] [facility], [place], [address], 04/06/2015 14:43:14 04/01/20 15 04/06/2015 pap, IG + HPV, cervi gena . . Not Available [facility] ([facility]) [address] [facility], [place], [address], 04/06/2015 14:43:14 04/01/20 15 04/06/2015 pap, IG + HPV, cervi gena pathologist provided ICD10: ANAYELI Roth R87.6 15 Not Available [facility] ([facility]) [address] [facility], [place], [address], 04/06/2015 14:43:14 04/01/20 15 04/06/2015 pap, IG + HPV, cervi gena note: COMMEN T THE PAP SMEAR IS A SCREE JEN TEST DESIG HARSHIL TO AID IN THE DETEC TION OF MYCHAL LIGNA NT AND MALIG NANT CONDI TIONS OF THE UTERI NE CERVI X. IT IS NOT A DIAGN OSTIC PROCE DURE AND SHOUL D NOT BE USED THE SOLE MEANS OF DETEC TING CERVI GENA CANCE R. BOTH FALSE -POSI TIVE AND FALSE -NEGA TIVE REPOR TS DO OCCUR . Not Available [facility] ([facility]) [address] [facility], [place], [address], 04/06/2015 14:43:14 04/01/20 15 04/06/2015 pap, IG + HPV, cervi gena test methodology: ANAYELI Roth THIS LIQUI D BASED THINP REP(R ) PAP TEST WAS SCREE HARSHIL WITH THE USE OF AN IMAGE GUIDE Amy SYSTBrenden Beasley. Not Available [facility] ([facility]) [address] [facility], [place], [address], 04/06/2015 14:43:14 09/04/19 16 09/04/2015 imagi ng/di agnos tic resul t No observ ation record ed. [facility] (Imaging) [address] [place], [address], 09/05/2015 15:04:21 09/14/19 16 09/14/2015 imagi ng/di agnos tic resul t No observ ation record ed. [facility] (Imaging) [address] [place], [address], 09/15/2015 10:23:27 08/03/19 17 08/02/2016 XR, lumbo sacra l spine No observ ation record ed. [address] (Imaging) [address] [place], [address], 08/14/2016 06:58:39 07/12/19 21 07/11/2020 CT, abdom en + pelvi s, w/o contr ast No observ ation record ed. [facility] [address] [place], [address], 07/13/2020 07:43:10 Result Notes None recorded. Problems Name Problem SNOMED Code Status Onset Date Resolution Date Notes Provider Name and Address Organization Details Recorded Time Attention deficit hyperactivity disorder [id number] Active 2016 Candi Pacheco MD Attn: Debbie dia,[address] [place], [address], [place] - [facility] 7 15:42:48 Problem Notes None recorded. Procedures Surgical History Date Name Laterality Status Provider Name and Address Organization Details Recorded Time 5 Date of Last Pap Smear completed Aminata Pacheco MA [place] - [facility] 04/01/2015 15:34:40 4 Laparotomy completed Brianna Hathaway LPN [place] [facility] 05/20/2014 15:11:53 Imaging Results Imaging Date Name Status [facility]Modified by [facility] Details LastModified Time 09/04/2015 imaging/diagnos tic result completed [facility] ([facility]) [address] [place], [address], 09/05/2015 15:04:21 09/14/2015 imaging/diagnos tic result completed [facility] ([facility]) [address] [place], [address], 09/15/2015 10:23:27 08/02/2016 XR, lumbosacral spine [place] [id number] [facility] (Imaging) [address] [place], [address], 08/14/2016 06:58:39 07/11/2020 CT, abdomen + pelvis, w/o contrast completed [facility] On [facility] Orders [address] [place], [address], 07/13/2020 07:43:10 Procedure Notes None recorded. Medical Equipment None Reported. Allergies Allergen ID Allergen Name Allergen Category Reaction Reaction Severity Criticality Documentation Date Start Date Code Code System Note Provider Name and Address Organization Details Recorded Time 8148 Product containin g penicilli n (product) medicatio n hives severe Not available 05/20/2014 24540 8001 SNOMED hospi taliz ed for last time she recei heather pcn Not Available Not Available Not Available Medications Name Sig Start Date Stop Date Status Note LastModified by Organization Details LastModified Time fluoxetine 40 mg capsule active Not Available Not Available Not Available ibuprofen 800 mg tablet active Not Available Not Available Not Available ondansetron HCl 4 mg tablet active Not Available Not Available Not Available famotidine 40 mg tablet active Not Available Not Available Not Available sulfamethoxa zole 800 mg-trimethop rim 160 mg tablet active Not Available Not Available Not Available quetiapine 100 mg tablet active Not Available Not Available Not Available fluoxetine 10 mg capsule active Not Available Not Available Not Available fluoxetine 20 mg capsule active Not Available Not Available Not Available medroxyproge sterone 150 mg/mL intramuscula r suspension active Not Available Not Available Not Available Ventolin HFA 90 mcg/actuatio n aerosol inhaler active Not Available Not Available Not Available Depo-Provera 150 mg/mL intramuscula r syringe Inject 150 mL every 3 months by intramuscul ar route as directed. 2015 active [facility]# [id number] Not Available Not Available Not Available Abilify 10 mg tablet Take 1 tablet every day by oral route at bedtime. active Not Available Not Available No t Available quetiapine 50 mg tablet active Not Available Not Available Not Available Vitals Date Recorded Body weight Body mass index (BMI) Body height Systolic blood pressure Diastolic blood pressure Provider Name and Address Organization Details Last Updated DateTime 05/20/2014 78567.92 579 g 32.6 kg/m2 152.4 cm 108 mm[Hg] 76 mm[Hg] Brianna Hathaway LPN [facility] 4 15:05:12 Date Recorded Body height Body mass index (BMI) Body weight Systolic blood pressure Diastolic blood pressure Provider Name and Address Organization Details Last Updated DateTime 04/01/2015 152.4 cm 35.5 kg/m2 62085.81 134 g 110 mm[Hg] 76 mm[Hg] Aminata Pacheco MA [facility] 5 15:33:53 Date Recorded Body height Body weight Body mass index (BMI) Systolic blood pressure Diastolic blood pressure Provider Name and Address Organization Details Last Updated DateTime 07/01/2015 152.4 cm 31511.81 134 g 35.5 kg/m2 112 mm[Hg] 68 mm[Hg] Jessie Barrientos MA [facility] 6 15:43:12 Date Recorded Body weight Body mass index (BMI) Body height Systolic blood pressure Diastolic blood pressure Provider Name and Address Organization Details Last Updated DateTime 08/18/2014 89058.29 527 g 33.4 kg/m2 152.4 cm 112 mm[Hg] 80 mm[Hg] Brianna Hathaway LPN [facility] 5 11:37:59 Date Recorded Body height Body mass index (BMI) Body weight Body temperature Heart rate Oxygen saturation Oxygen saturation in Arterial blood by Pulse oximetry Systolic blood pressure Diastolic blood pressure Provider Name and Address Organization Details Last Updated DateTime 7 152.4 cm 34.3 kg/m2 81709.1 g 98.3 [degF] 103 /min 98 % 98 % 116 mm[Hg] 80 mm[Hg] Ludy Chan MA [facility] 7 14:58:33 Social History Question Answer Notes LastModified by Organizat ion Details LastModified Time Tobacco Smoking Status Never Smoker Brianna Hathaway LPN [facility] 05/20/2014 15:16:55 Do You Have An Advance Directive? No [email or web address] Information not available 05/20/2014 What Is Your Level Of Alcohol Consumption? Occasional Socially, Special Occasions [email or web address] Information not available 05/20/2014 Is Blood Transfusion Acceptable In An Emergency? Yes [email or web address] Information not available 05/20/2014 What Is Your Level Of Caffeine Consumption? Occasional Soda And Tea [email or web address] Information not available 05/20/2014 How Much Tobacco Do You Chew? None [email or web address] Information not available 05/20/2014 Are You Currently Employed? No [email or web address] Information not available 05/20/2014 What Type Of Diet Are You Following? SPECIFIC High Fiber [email or web address] Information not available 05/20/2014 Which Illicit Or Recreational Drugs Have You Used? None [email or web address] Information not available 05/20/2014 Education 12 [email or web address] Information n ot available 05/20/2014 What Is Your Occupation? Unemployed, With No Work Experience In The Last 5 Years Or Earlier Or Never Worked [email or web address] Information not available 05/20/2014 Live Alone Or With Others? With Others [email or web address] Information not available 05/20/2014 How Many Children Do You Have? 0 [email or web address] Information not available 05/20/2014 Performs Monthly Self-breast Exam? No Information not available 05/20/2014 Do You Use Protection During Sex? Always [email or web address] Information not available 05/20/2014 What Is Your Relationship Status? Single [email or web address] Information not available 05/20/2014 Seat Belts Used Routinely Yes [email or web address] Information not available 05/20/2014 Are You Sexually Active? Yes [email or web address] Information not available 05/20/2014 How Much Tobacco Do You Smoke? No [email or web address] Information not available 05/20/2014 General Stress Level High [email or web address] Information not available 05/20/2014 Do You Use Sunscreen Routinely? Yes [email or web address] Information not available 05/20/2014 Sex: Unknown Functional Status Question Answer Note LastModified by Organizat ion Details LastModified Time What is your exercise level? Occasional walks [email or web address] Information not available 05/20/2014 Mental Status None recorded. Family History Relationship Description Onset Age of this Age Resolved Age Notes LastModified by Organization Details LastModified Time Mother Carcinoma of breast [email or web address] Not available 04/01 15:34:40 Medical History Condition Response Heart Problems N Other N Breast Cancer N Thyroid Problems N Kidney or Bladder Problems Y GI Problems Y Lung Disease N Depression Y Acne N Eating Disorder N Breast Problem N Anemia N Anesthesia Complications N Headaches/Migraines Y Anxiety Disorder N Diabetes N Ovarian Cancer N Blood Transfusions N Arthritis N Polyps N Infertility N Acid Reflux (GERD) N Cancer N Stroke N Abuse/Domestic Violence N Asthma Y Endometriosis Y High Cholesterol N Hepatitis N Heart Disease N Fibromyalgia N Pre-Eclampsia N Hypertension N Osteoporosis N Kidney Disease N Gynecological History Statement/Question Response Abnormal Pap N Flow Heavy STIs/STDs N HPV Vaccine Y Duration of Flow (days) 10 Age at Menarche 9 Current Control Method None Frequency of Cycle (Q days) 28 Sexually Active? Y Menses Monthly N Date of Last Pap Smear 04/01/2015 Sexual Problems? N LMP Unknown Desired Control Method Other Obstetrics History GPAL:G 0 P 0 0 0 0 Type Value Multiple Births 0 Full Term 0 Induced 0 Spontaneous 0 Premature 0 Living 0 Ectopics 0 Total 0 Immunizations Vaccine Type Date Status Note Provider Nam e and Address Organization Details Recorded Time COVID-19, mRNA, LNP-S, PF, 100 mcg/0.5mL dose or 50 mcg/0.25mL dose 09/15/2020 completed [facility] 12/01/2020 15:56:31 Past Encounters Encounter ID Performer Location Encounter Start Date Encounter Closed Date Diagnosis/Indication Diagnosis SNOMED-CT Code Diagnosis ICD10 Code Diagnosis Note [id number] KATHY Workman (MUSIC MINISTRIES DIRECTOR) [address] [place] [address] 0 05/20/2014 14:00:59 05/20/2014 17:24:01 Contraception care [id number] Christie Carrillo (MUSIC MINISTRIES DIRECTOR) [address] [place] [address]76[address]616 0 08/18/2014 10:56:16 08/18/2014 15:35:51 Uses depot contraception 675022021 [id number] Lily Carrillo (MUSIC MINISTRIES DIRECTOR) [address] [place] [address]161[address] 0 04/01/2015 14:42:19 04/01/2015 17:44:52 Gynecologic examination 94909661 Z01.419 Uses depot contraception 777574788 Z30.42 [id number] JONATHAN Sesay (MUSIC MINISTRIES DIRECTOR) [address] [place] [address]385-658 0 07/01/2015 14:53:45 07/01/2015 16:20:50 Uses depot contraception 622435547 Z30.42 [id number] Candi Pacheco MD [facility] (Adult Med) [address] [place] [address] 12/04/2016 14:29:54 12/05/2016 11:14:02 Attention deficit hyperactivity disorder 234504505 F90.9 Cleared for camp Health Concerns Section Related Observation LastModified by Organization Detai ls LastModified Time None Recorded Concern Status LastModified by Organization Details LastModified Time None Recorded Advance Directives Directive N: Payers Encounter Date Sequence Insurance Name Policy Number Policy Garcia Covered Member ID Garcia Member ID Guarantor Name 05/20/2014 1 [place] [facility] Lizette Coombs [id number] Lizette Coombs 08/18/2014 1 [place] [facility] Lizette Coombs [id number] Lizette Coombs 04/01/2015 1 [facility] PRIOR TO 12/08/2020 (MEDICAID REPLACEMENT - HMO) Lizette Coombs [id number] Lizette Coombs 07/01/2015 1 [facility] PRIOR TO 12/08/2020 (MEDICAID REPLACEMENT - HMO) Lizette Coombs [id number] Lizette Coombs 12/04/2016 1 [facility] PRIOR TO 12/08/2020 (MEDICAID REPLACEMENT - HMO) Lizette Coombs [id number] Lizette Coombs Notes Date Note Type Note Provider Name and Address Organization Details Recorded Time 12/04/2016 text/html Needs to get a physical done for day camp Candi Pacheco MD Attn: Accounting,[address] [place], [address], [facility] 12/04/2016 15:48:16 OBGyn Episode No OBEpisode recorded.
--- OUTSIDE RECORDS SUMMARY | 2024-08-27 14:25 | XMS_ITS | CONTINUITY OF CARE DOCUMENT ---
Author Name elliot zarate Address Unknown Organization [facility] Address [address] [place] [address] Phone [phone] Care Team Providers Care Battery Vent Plug Inserter Name Role Phone elliot zarate Unavailable Unavailable INSURANCE PROVIDERS Payer name Policy type / Coverage type Jose red libertarian [employer] [facility] Medicaid 1 [id number]
--- OUTSIDE RECORDS SUMMARY | 2024-08-27 14:25 | XMS_ITS | Data Portability ---
Author Organization [facility] [place] Address [address] [place] [address] Assessment No assessment recorded. Plan of Treatment Reminders Order Date Submit Date Provider Last Modified By Organization Details Last Modified Time Details Appointments None recorded. Lab None recorded. Referral None recorded. Procedures None recorded. Surgeries laparoscopi c ovarian cystectomy (SURG) 2020 021 [facility], [facility], [place], [address], 14:04:08 Imaging US, pelvis [email or web address] [place] [address], [address], [address], [place], [address], 13:59:54 Medication Orders None recorded. Patient TargetsNo targets recorded. Patient InstructionsNo instructions recorded. Reason for Referral None Reported. Results Created Date Observation Date Name Description Value Unit Range Abnormal Flag Note LastModifiedBy Organization Detail LastModifiedTime 08/10/1908/09/2020 joceline LUZ md interpretati on Not Available [facility] [address], [place], [address], 08/05/2020 17:18:24 08/05/19 21 joceline LUZ, trans abdom inal + trans vagin al No observ ation record ed. debby Wang [address], [place], [address], 08/08/2020 12:16:40 Result Notes None recorded. Procedures Surgical History Date Name Laterality Status Provider Name and Address Organization Details Recorded Time 12/24/19 21 Abcess Drainage completed Maciej Almodovar MD [address], [place], [address], [place] [facility] 12/23/2020 19:45:20 12/08/19 21 LAPAROSCOPIC OVARIAN CYSTECTOMY (SURG) completed Isabelle Carlos [facility] 12/07/2020 11:48:47 Unlisted procedure stomach completed Meredith Schultz [facility] 08/05/2020 15:50:26 Imaging Results Imaging Date Name Status LastModified by Organization Details LastModified Time 08/05/2020 US, pelvis, transabdominal + transvaginal completed layran Kathleen [address], [place], [address], 08/08/2020 12:16:40 Procedure Notes None recorded. Medical Equipment None Reported. Allergies Allergen ID Allergen Name Allergen Category Reaction Reaction Severity Criticality Documentation Date Start Date Code Code System Note Provider Name and Address Organization Details Recorded Time 60847 Product containin g penicilli n (product) medicatio n Not available Not available Not available 08/05/2020 49431 8001 SNOMED Meredith Schultz [facility] 14:07:00 Medications Name Sig Start Date Stop Date Status Note LastModified by Organization Details LastModified Time fluoxetine 40 mg capsule active Not Available Not Available N ot Available lamotrigine 200 mg tablet active Not Available Not Available No t Available ketoconazole 2 % shampoo active Not Available Not Available No t Available quetiapine 300 mg tablet active Not Available Not Available No t Available cetirizine 10 mg tablet active Not Available Not Available No t Available azithromycin 250 mg tablet active Not Available Not Availabl e Not Available tizanidine 4 mg tablet active Not Available Not Available Not Available hydrocodone 5 mg-acetaminophe n 325 mg tablet TAKE 1 TABLET BY MOUTH EVERY 6 HOURS active Not Available Not Available No t Available metronidazole 500 mg tablet active Not Available Not Availabl e Not Available tramadol 50 mg tablet TAKE 1 TABLET BY MOUTH EVERY 4 HOURS NEEDED active Not Available Not Available No t Available quetiapine 100 mg tablet active Not Available Not Available No t Available triamcinolone acetonide 0.1 % topical cream active Not Available Not Availabl e Not Available ziprasidone 20 mg capsule Take 1 capsule twice a day by oral route. active Not Available Not Available No t Available ranitidine 150 mg tablet active Not Available Not Available No t Available mirtazapine 15 mg tablet active Not Available Not Available No t Available ibuprofen 600 mg tablet active Not Available Not Available No t Available levofloxacin 750 mg tablet active Not Available Not Availabl e Not Available methylprednisol one 4 mg tablets in a dose pack active Not Available Not Available No t Available ketoconazole 2 % topical cream active Not Available Not Availa ble Not Available ziprasidone 60 mg capsule active Not Available Not Available N ot Available fluoxetine 20 mg capsule active Not Available Not Available N ot Available medroxyprogeste romina 150 mg/mL intramuscular suspension active Not Available Not Available N ot Available lamotrigine 100 mg tablet active Not Available Not Available No t Available hydroxyzine pamoate 25 mg capsule active Not Available Not Available Not Available ciprofloxacin 0.3 %-dexamethasone 0.1 % ear drops,suspensio n active Not Available Not Available Not Available [facility] 100,000 unit/gram topical powder active Not Available Not Availab le Not Available hydroxyzine HCl active Not Available N ot Available Not Available quetiapine active Not Available Not Av ailable Not Available quetiapine 50 mg tablet active Not Available Not Available No t Available Vitals Date Recorded Body height Body mass index (BMI) Body weight Systolic blood pressure Diastolic blood pressure Provider Name and Address Organization Details Last Updated DateTime 08/05/2020 152.4 cm 43.6 kg/m2 112742.1 g 119 mm[Hg] 83 mm[Hg] [facility] 1 15:49:56 Date Recorded Body height Body mass index (BMI) Body weight Systolic blood pressure Diastolic blood pressure Provider Name and Address Organization Details Last Updated DateTime 12/23/2020 152.4 cm 42.4 kg/m2 76606.54 g 124 mm[Hg] 90 mm[Hg] [facility] 09:47:01 Social History None recorded. Functional Status None recorded. Mental Status None recorded. Family History Relationship Description Onset Age of this Age Resolved Age Notes LastModified by Organization Details LastModified Time Maternal Grandmother Asthma [email or web address] Not available 06/2020 09:49:43 Maternal Grandmother Diabetes mellitus [email or web address] Not available 2020 09:50:19 Maternal Grandmother Hypertensive disorder [email or web address] Not available 2020 09:50:46 Maternal Grandfather Diabetes mellitus [email or web address] Not available 2020 09:50:19 Maternal Grandfather Hypertensive disorder [email or web address] Not available 2020 09:50:46 Maternal Grandfather Malignant tumor of lung [email or web address] Not available 2020 09:51:30 Maternal Aunt Diabetes mellitus [email or web address] Not available 2020 09:50:19 Maternal Aunt Hypertensive disorder [email or web address] Not available 2020 09:50:46 Maternal Aunt Cyst of ovary [email or web address] Not available 2020 09:51:57 Maternal Uncle Diabetes mellitus [email or web address] Not available 2020 09:50:19 Maternal Uncle Malignant tumor of kidney [email or web address] Not available 2020 09:52:17 Medical History No medical history recorded. 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 We have agreed to perform laparoscop ic ovarian cystectomy . She understand s the risks, benefits, and alternativ es. She has completed the informed consent process and is ready to proceed. [id number] [facility] [address] [address] 08/05/2020 14:37:42 08/08/2020 13:59:54 Cyst of left ovary 2467304757 2699317 N83.292 R10.2 [id number] Maciej Almodovar MD [facility] [address] [address] 12/13/2020 09:40:06 12/13/2020 09:45:20 [id number] Maciej Almodovar MD [facility] [address] [address] 12/23/2020 09:32:32 12/24/2020 23:34:23 Superficial incisional surgical site infection 631802962 T81.41XA Health Concerns Section Related Observation LastModified by Organization Detai ls LastModified Time None Recorded Concern Status LastModified by Organization Details LastModified Time None Recorded Advance Directives Directive None Recorded Payers Encounter Date Sequence Insurance Name Policy Number Policy Garcia Covered Member ID Garcia Member ID Guarantor Name 08/05/2020 1 [facility] PRIOR TO 12/08/2020 (MEDICAID REPLACEMENT - HMO) Lizette Coombs [id number] Lizette Coombs 08/05/2020 1 [facility] PRIOR TO 12/08/2020 (MEDICAID REPLACEMENT - HMO) Lizette Coombs [id number] Lizette Coombs 12/07/2020 1 [facility] PRIOR TO 12/08/2020 (MEDICAID REPLACEMENT - HMO) Lizette Coombs [id number] Lizette Coombs 12/23/2020 1 [facility] ON OR AFTER 12/08/20 (MEDICAID REPLACEMENT - HMO) Lizette Coombs [id number] Lizette Coombs Notes Date Note Type Note Provider Name and Address Organization Details Recorded Time 08/05/2020 text/html this patient is a 30-year-old female with severe pelvic pain. She was evaluated previously and found to have a 12 cm ovarian cyst. Ultrasound was repeated today. The 12 cm cyst is still present. She has intense sharp lower abdominal/ pelvic pain. Is constant. Is worse with movement. Is affecting her quality of life and activities daily living. She is at risk for torsion. We agreed to perform laparoscopic ovarian cystectomy. The patient understands the procedure. The procedure was described to the patient in great detail. the patient also understands the risks. The risks were also explained in detail. She understands that injuries May occur during surgery. She understands these injuries can result in hospitalization, more surgery, and severe illness. She understands there is risk of hemorrhage and infection. Maciej Almodovar MD [address], [place], [address], [facility] 08/05/2020 20:06:20 12/23/2020 text/html This patient is a 30-year-old female presents for postop follow-up. She has got pain and tenderness at the left lower quadrant incision site. She is believed to have a slight hernia there with omental fat in the subcutaneous tissue beyond the fascia. The skin was cleansed with Betadine, the skin was numbed with lidocaine and incision of about a cm half was made in the left lower quadrant incision site with a scalpel. This subcutaneous fat was probed with a sterile Q-tip. There was a small defect underneath the skin. The defect was packed with iodoform gauze. It was covered with gauze and tape. Patient will follow-up here tomorrow or in at the hospital in [place]. Maciej Almodovar MD [address], [place], [address], [facility] 12/23/2020 19:46:27 OBGyn Episode No OBEpisode recorded.
== END 2024-08-27 13:59 | disposition home or self-care (01) ==
LOC: CHSIMG 14:00
PROVIDERS: PCP Family Medicine; Visit Provider Family Medicine
DX: M25.511 Pain in right shoulder (principal)
CPT/HCPCS: 73030

== ENCOUNTER 2024-09-02 08:44 | Outpatient (RCR) | payer OTHER, SELFPAY ==
--- NOTE | 2024-09-02 09:52 | OPREHPOC ---
Outpatient Therapy Plan of Care This is a Multidisciplinary Plan of Care that may contain components documented by all disciplines (PT, OT, and ST.) PT Problem 1 PT Problem #1 Knowledge Deficit PT Goal 1 Goal / Goal Update 1. independent and compliant with HEP Target Visit 4 PT Problem 2 PT Problem #2 Pain PT Goal 1 Goal / Goal Update 1. 2/10 pain at worst or less in the R shoulder Target Visit 8 PT Problem 3 PT Problem #3 Impaired Range of Motion PT Goal 1 Goal / Goal Update 1. 165 degrees active R shoulder flex without pain 2. 70 degrees active R shoulder IR without pain Target Visit 8 PT Problem 4 PT Problem #4 Impaired Strength PT Goal 1 Goal / Goal Update 1. improve bilateral shoulder strength to 4+/5 or better overall Target Visit 8 PT Problem 5 PT Problem #5 Impaired Functional Mobility PT Goal 1 Goal / Goal Update 1. patient to wash table an make her bed without pain 2. quick dash to display 20% or less functional deficits Target Visit 8
--- NOTE | 2024-09-02 09:52 | PTOPEVAL1 ---
Assessment and note entered by JT File, PT Evaluation Information Assessment Status Evaluation ICD-10 Condition Codes (PT) Pain in right shoulder M25.511 Onset 08/28/24 Subjective Information patient reports she just randomly began having pain in the R shoulder one day. she reports she does not recall any injury. she reports she had xrays, and they were negative. she reports she then was referred to PT. she reports she has been having pain in the R shoulder for months. she reports she has increased pain in the R shoulder when cleaning tables. she reports she does not work, but helps out at [facility] where she lives. she reports she also has increased pain with making her bed. she reports the pain is in the front of the R shoulder. she reports she was given no injection or prescribed medication for this issue. Reported Pain Level Pain Score 3: Self Report Assessment PT Clinical Summary ms. márquez is a 34 yo woman who presents to skilled PT services for evaluation and treatment of R shoulder pain. she displays tenderness to the anterior shoulder, deficits in R shoulder rom, weakness of the R shoulder, and pain with activities using the R shoulder. she displays signs and symptoms consistent with R biceps long head tendonitis. she would benefit from continued skilled PT to address her objective/functional deficits and return to her prior level functional activity performance/quality of life. Plan of Care Interventions Electrical Stimulation,Hot Pack/Cold Pack,Manual Therapy,Neuro Re-education,Patient/Caregiver Education,Therapeutic Activities,Therapeutic Exercise PT Services Indicated Yes Treatment Frequency and 2x weekly for 8 visits Duration These treatments will address the objective and functional deficits as defined above. The patient will be advanced safely and appropriately in order for the patient to progress towards his/her prior level of function. Additional exercises will be introduced and as well as a comprehensive home exercise program upon discharge, if needed, ?to ensure carryover of functional gains achieved in the clinic. This treatment plan has been reviewed and agreement upon by the patient.
== END 2024-09-29 20:00 | disposition home or self-care (01) ==
LOC: CHSPT 08:44
PROVIDERS: PCP Family Medicine; Visit Provider Family Medicine
DX: M25.511 Pain in right shoulder (principal)
CPT/HCPCS: 97014; 97110; 97112; 97140; 97161; G0283

== ENCOUNTER 2025-05-18 09:59 | Outpatient (CLI) | payer OTHER, SELFPAY ==
--- NOTE | ~2025-05-18 | XR_ITS ---
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 Technique: 3 view. Findings: Moderate fecal content, no dilated bowel loops No free air. No abnormal calcifications No acute osseous abnormality. Impression: 1. No acute abnormality. Reviewed, dictated and finalized at location P. NHOUSE INSTRUCTOR Impression: 1. No acute abnormality.
== END 2025-05-18 10:00 | disposition home or self-care (01) ==
PROVIDERS: PCP Family Medicine; Visit Provider Nurse Practitioner Family
DX: N39.44 Nocturnal enuresis (principal)
CPT/HCPCS: 74018

== ENCOUNTER 2025-06-01 08:20 | Outpatient (CLI) | payer OTHER, SELFPAY ==
--- NOTE | ~2025-06-01 | US_ITS ---
US renal BI 06/01/2025 08:54 Procedure: Realtime transabdominal ultrasound of the kidneys and bladder. Indication: Nocturnal anuresis Comparison: No prior studies for comparison. Findings: Renal echotexture is normal bilaterally without hydronephrosis, contour deforming mass or renal calculus. The right kidney measures 13.6 cm and left kidney measures 13 cm. Bladder within normal limits. Prevoid volume 233 cc's. Postvoid volume 11 cc. Impression: 1: Unremarkable renal ultrasound. No stones, masses or hydronephrosis. Reviewed, dictated and finalized at location O. 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 No stones, masses or hydronephrosis.
--- OUTSIDE RECORDS SUMMARY | 2025-06-01 08:29 | XMS_ITS | Patient Health Record ---
Author Organization [facility] [place] Address [address] [facility] [address] [place] [address] Care Team Providers Care Payroll Accounting Clerk Name Role Phone Lisa Adrian Unavailable [phone] Reason For Referral No Information Medications Medication SIG (Take, Route, Frequency, Duration) Notes Start Date End Date Status lamoTRIgine 100 MG Tablet Oral 08/31/2022 Active busPIRone HCl 10 MG Tablet Oral 08/31/2022 Active QUEtiapine Fumarate 200 MG Tablet Oral 08/31/2022 Active Acetaminophen 325 MG Tablet Oral 08/31/2022 Active Social History Social History Additional Details Category Social Info Options Details Migrated Social History Migrated Social History Alcohol Intake: None 11/03/2021,Tobacco Years: Never smoker 11/03/2021 Plan Of Treatment No Information Insurance Providers Payer Name Payer Address Payer Phone Subscriber Number Group Number Insured Name Patient Relationship to Insured Coverage Start Date Coverage End Date [employer] [facility] On Or After 20 [address] [place] [address] [id number] BRISEIDA WU CH Self - patient is the insured
--- OUTSIDE RECORDS SUMMARY | 2025-06-01 08:29 | XMS_ITS | Data Portability ---
Author Organization [facility] [place] Address [address] [place] [address] [place] [address] Assessment No assessment recorded. Plan of Treatment Reminders Order Date Submit Date Provider Last Modified By Organization Details Last Modified Time Details Appointments None recorded. Lab None recorded. Referral None recorded. Procedures None recorded. Surgeries laparoscopi c ovarian cystectomy (SURG) 2020 021 [facility], [address] [address], [place], [address], 14:04:08 Imaging US, pelvis [email or web address] [place] [address], [address], [address], [place], [address], 13:59:54 Medication Orders None recorded. Patient TargetsNo targets recorded. Patient InstructionsNo instructions recorded. Reason for Referral None Reported. Results Created Date Observation Date Name Description Value Unit Range Abnormal Flag Note LastModifiedBy Organization Detail LastModifiedTime 08/10/1908/09/2020 joceline LUZ md interpretati on Not Available [facility] [address], [place], [address], 08/05/2020 17:18:24 08/05/19 21 joceline LUZ, trans abdom inal + trans vagin al No observ ation record ed. [email or web address] Wang [address], [place], [address], 08/08/2020 12:16:40 Result Notes None recorded. Procedures Surgical History Date Name Laterality Status Provider Name and Address Organization Details Recorded Time 12/24/19 21 Abcess Drainage completed Maciej Almodovar MD [address], [place], [address], [facility] 12/23/2020 19:45:20 12/08/19 21 LAPAROSCOPIC OVARIAN CYSTECTOMY (SURG) completed Isabelle Carlos [facility] 12/07/2020 11:48:47 Unlisted procedure stomach completed Meredith Schultz [facility] 08/05/2020 15:50:26 Imaging Results None recorded. Procedure Notes None recorded. Medical Equipment None Reported. Allergies Allergen ID Allergen Name Allergen Category Reaction Reaction Severity Criticality Documentation Date Start Date Code Code System Note Provider Name and Address Organization Details Recorded Time Product containin g penicilli n (product) medicatio n Not available Not available Not available 08/05/2020 [id number] SNOMED Meredith Schultz [facility] 14:07:00 Medications Name Sig Start Date [...] active Not Available Not Available Not Available Nyamyc 100,000 unit/gram topical powder active Not Available Not Availab le Not Available hydroxyzine HCl active Not Available N ot Available Not Available quetiapine active Not Available Not Av ailable Not Available quetiapine 50 mg tablet active Not Available Not Available No t Available Vitals Date Recorded Body height Body mass index (BMI) Body weight Systolic And Diastolic Provider Name and Address Organization Details Last Updated DateTime 08/05/2020 152.4 cm 43.6 kg/m2 561394.1 g 119/83 mm[Hg] [facility] 08/05/2020 15:49:56 Date Recorded Body height Body mass index (BMI) Body weight Systolic And Diastolic Provider Name and Address Organization Details Last Updated DateTime 12/23/2020 152.4 cm 42.4 kg/m2 86400.54 g 124/90 mm[Hg] [facility] 12/23/2020 09:47:01 Social History None recorded. Functional Status None recorded. Mental Status None recorded. Family History Relationship Description Onset Age of this Age Resolved Age Notes LastModified by Organization Details LastModified Time Maternal Grandmother Asthma [email or web address] Not available 06/2020 09:49:43 Maternal Grandmother Diabetes mellitus [email or web address] Not available 2020 09:50:19 Maternal Grandmother Hypertensive disorder [email or web address] Not available 2020 09:50:46 Maternal Grandfather Diabetes mellitus [email or web address] Not available 2020 09:50:19 Maternal Grandfather Hypertensive disorder [email or web address] Not available 2020 09:50:46 Maternal Grandfather Malignant neoplasm of lung [email or web address] Not available 2020 09:51:30 Maternal Aunt Diabetes mellitus [email or web address] Not available 2020 09:50:19 Maternal Aunt Hypertensive disorder [email or web address] Not available 2020 09:50:46 Maternal Aunt Cyst of ovary [email or web address] Not available 2020 09:51:57 Maternal Uncle Diabetes mellitus [email or web address] Not available 2020 09:50:19 Maternal Uncle Malignant neoplasm of kidney [email or web address] Not available 2020 09:52:17 Medical History No medical history recorded. 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 We have agreed to perform laparoscop ic ovarian cystectomy . She understand s the risks, benefits, and alternativ es. She has completed the informed consent process and is ready to proceed. [id number] Maciej Almodovar MD [place] [address] [address] 08/05/2020 14:37:42 08/08/2020 13:59:54 Cyst of left ovary 4824571457 6317591 N83.292 R10.2 [id number] Maciej Almodovar MD [place] [address] [address] 12/13/2020 09:40:06 12/13/2020 09:45:20 [id number] Maciej Almodovar MD [place] [address] [address] 12/23/2020 09:32:32 12/24/2020 23:34:23 Superficial incisional surgical site infection [id number] T81.41XA Health Concerns Section Related Observation LastModified by Organization Detai ls LastModified Time None Recorded Concern Status LastModified by Organization Details LastModified Time None Recorded Advance Directives Directive None Recorded Payers Insurance Date Sequence Insurance Name Policy Number Policy Garcia Covered Member ID Garcia Member ID Guarantor Name 12/21/2020 1 [facility] PRIOR TO 12/08/2020 (MEDICAID REPLACEMENT - HMO) Lizette Coombs [id number] Lizette Coombs 12/21/2020 1 [facility] - DOS ON OR AFTER 20 (MEDICAID REPLACEMENT - HMO) Lizette Coombs [id number] Lizette Coombs Notes Date Note Type Note [...] infection. Maciej Almodovar MD [address], [place], [address], [facility] 08/05/2020 20:06:20 12/23/2020 text/html This patient [...] follow-up here tomorrow or in at the [facility]. Maciej Almodovar MD [address], [place], [address], [facility] 12/23/2020 19:46:27 OBGyn Episode No OBEpisode recorded.
== END 2025-06-01 08:21 | disposition home or self-care (01) ==
LOC: CHSIMG 08:24
PROVIDERS: PCP Family Medicine; Visit Provider Nurse Practitioner Family
DX: N39.44 Nocturnal enuresis (principal)
CPT/HCPCS: 76770